=== PATIENT | male | born 1945 | race Caucasian/White ===

== ENCOUNTER 2018-04-13 18:01 | Emergency (ER) | payer OTHER ==
[2018-04-13 18:19] VITALS: BP 156/93; PULSE 72; RESP 18; TEMP 98; O2SAT 100
[2018-04-13] MEDS ORDERED: Oxycodone/Acetaminophen 5/325 mg Tab PO STA (20:03)
[2018-04-13] MEDS ORDERED: Oxycodone/Acetaminophen 5/325 mg Tab ONE (20:07)
--- NOTE | 2018-04-13 21:15 | ED PDOC ---
Upper Extremity Pain/Injury Time Seen by Provider: 04/13/18 18:34 Chief Complaint (Nursing): Upper Extremity Problem/Injury Chief Complaint (Provider): Right shoulder pain, fall 3 days ago History Per: Patient History/Exam Limitations: no limitations Onset/Duration Of Symptoms: Days Current Symptoms Are (Timing): Still Present Severity: Severe Pain Scale Rating Of: 10 Additional Complaint(s): 72 yo male presents with right shoulder pain after a fall 3 days ago. Pt states that he tripped, put the right hand out, hit the right elbow and landed on the right shoulder. Pt states he has been taking aspirin but it is not helping. No numbness/tingling. Past Medical History Reviewed: Historical Data, Nursing Documentation, Vital Signs Vital Signs: Last Vital Signs Temp 98 F 04/13/18 18:17 Pulse 72 04/13/18 18:17 Resp 18 04/13/18 18:17 BP 156/93 H 04/13/18 18:17 Pulse Ox 100 04/13/18 18:17 - Medical History PMH: No Chronic Diseases - Surgical History Surgical History: No Surg Hx - Family History Family History: States: No Known Family Hx - Living Arrangements Living Arrangements: With Family - Social History Current smoker - smoking cessation education provided: No - Home Medications Home Medications: Ambulatory Orders Medication Instructions Recorded oxyCODONE/Acetaminophen [Percocet 1 ea PO Q6H PRN #15 tab 04/13/18 5/325 mg Tab] - Allergies Allergies/Adverse Reactions: Allergies Allergy/AdvReac Type Severity Reaction Status Date / Time No Known Allergies Allergy Verified 04/13/18 18:17 Review of Systems ROS Statement: Except As Marked, All Systems Reviewed And Found Negative Constitutional: Negative for: Fever, Chills Musculoskeletal: Positive for: Shoulder Pain Skin: Negative for: Bruising Physical Exam - Reviewed Nursing Documentation Reviewed: Yes Vital Signs Reviewed: Yes - Physical Exam Appears: Positive for: Well, Non-toxic, No Acute Distress Head Exam: Positive for: ATRAUMATIC, NORMAL INSPECTION, NORMOCEPHALIC Skin: Positive for: Normal Color, Warm. Negative for: Rash Eye Exam: Positive for: Normal appearance ENT: Positive for: Normal ENT Inspection Neck: Positive for: Normal Respiratory: Negative for: Accessory Muscle Use, Respiratory Distress Pulses-Radial (L): 2+ Pulses-Radial (R): 2+ Back: Positive for: Normal Inspection Extremity: Positive for: Normal ROM, Tenderness (Right john head ). Negative for: Deformity, Swelling Neurologic/Psych: Positive for: Alert, Oriented - ECG O2 Sat by Pulse Oximetry: 100 Pulse Ox Interpretation: Normal Medical Decision Making Medical Decision Making: XR - calcified tendonitis Pt placed in sling. Discussed fu for continued pain. Disposition - Clinical Impression Clinical Impression: Calcifying tendinitis - Disposition Referrals: Spencer Odell MD [Medical Doctor] - Disposition: Routine/Home Disposition Time: 20:15 Condition: STABLE Prescriptions: oxyCODONE/Acetaminophen [Percocet 5/325 mg Tab] 1 ea PO Q6H PRN #15 tab PRN Reason: Pain, Severe (8-10) Instructions: Tendonitis Forms: [facility] (Polish)
--- NOTE | 2018-04-14 08:53 | RAD ---
Date of service: 04/13/2018 PROCEDURE: Radiographs of the right elbow. HISTORY: pain, fall COMPARISON: No prior. FINDINGS: BONES: Bone alignment is normal. There is diffuse bone demineralization. There is a curvilinear or ossific density superior to the olecranon process with mild cortical step-off on lateral projection. JOINTS: Normal. No osteoarthritis. SOFT TISSUES: Normal. JOINT EFFUSION: None. OTHER FINDINGS: None. IMPRESSION: Question of acute avulsion fracture in the superior olecranon process. Please correlate with point tenderness.
--- NOTE | 2018-04-14 08:54 | RAD ---
Date of service: 04/13/2018 PROCEDURE: Radiographs of the Right Shoulder HISTORY: pain, fall COMPARISON: No prior. FINDINGS: BONES: Bone alignment and mineralization are normal. There is no acute displaced fracture or bone destruction. 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 There is mild degenerative osteoarthrosis in the glenohumeral joint. SOFT TISSUES: There are lobular calcifications superior lateral to the humeral head which may represent calcific tendinitis. OTHER FINDINGS: None. IMPRESSION: No acute fracture or dislocation.
== END 2018-04-13 20:22 | disposition home or self-care (01) ==
LOC: H.ER 18:01
DX: M75.21 Bicipital tendinitis, right shoulder (principal)